=== PATIENT | female | born 2000 | race African-American/Black ===

== ENCOUNTER 2024-04-01 13:46 | Emergency (ER) | payer OTHER ==
[~2024-04-01] VITALS: Ht 167.6 cm; Wt 99.8 kg
[2024-04-01 13:57] VITALS: BP 117/72; PULSE 84; RESP 22; TEMP 98.7; O2SAT 99
[2024-04-01 15:03] LABS: BASOPHILS # (AUTO) 0.1 K/uL (0.00-0.22); BASOPHILS % (AUTO) 1.2 % (0.0-2.0); EOSINOPHILS # (AUTO) 0.1 K/uL (0-0.4); EOSINOPHILS % (AUTO) 1.3 % (0.0-4.0); HEMATOCRIT 35.9 % (36-48); HEMOGLOBIN 12.1 g/dL (12.0-16.0); LYMPHOCYTES # (AUTO) 3.3 K/uL (2.5-16.5); LYMPHOCYTES % (AUTO) 41.2 % (20.5-51.1); MEAN CORPUSCULAR HEMOGLOBIN 29 pg (27-31); MEAN CORPUSCULAR HGB CONC 34 g/dL (33-37); MEAN CORPUSCULAR VOLUME 85.1 fL (80-94); MONOCYTES # (AUTO) 0.8 K/uL (0.8-1.0); MONOCYTES % (AUTO) 10.6 % (1.7-9.3); NEUTROPHILS # (AUTO) 3.6 K/uL (1.8-7.7); NEUTROPHILS % (AUTO) 45.7 % (42.2-75.2); PLATELET COUNT (AUTO) 270 K/uL (140-450); RED BLOOD CELL COUNT(AUTO) 4.21 MIL/uL (4.20-5.40); RED CELL DISTRIBUTION WIDTH 13.7 % (11.6-13.7); WHITE BLOOD COUNT (AUTO) 7.9 K/uL (4.8-10.8)
[2024-04-01 15:13] LABS: CALCIUM 8.9 mg/dL (8.5-10.1); CREATININE 0.9 mg/dL (0.6-1.3)
[2024-04-01] MEDS: POTASSIUM CHLORIDE 10 MEQ TABER PO ONE (15:42)
[2024-04-01 16:11] LABS: BILIRUBIN,URINE 2+ (NEGATIVE); BLOOD, URINE 3+ (NEGATIVE); LEUKOCYTE ESTERASE ,URINE 1+ (NEGATIVE); NITRITE, URINE POSITIVE (NEGATIVE); PH,URINE 6.5 (5.0-9.0); PROTEIN,URINE 3+ (NEGATIVE); UGLUCOSE NEGATIVE (NEGATIVE)
[2024-04-01 16:15] LABS: APPEARANCE,URINE SLIGHTLY BLOODY (CLEAR); COLOR,URINE SLIGHT BLOODY (YELLOW)
[2024-04-01 16:18] LABS: ICTOTEST NEGATIVE (NEGATIVE)
[2024-04-01 16:19] LABS: BACTERIA,URINE 3+ /HPF (None Seen); MUCUS,URINE 2+ /LPF (None Seen); RBC,URINE TOO NUMEROUS TO COUN /HPF (0-5); WBC,URINE 60-80 /HPF (0-5)
[2024-04-01 16:20] VITALS: BP 111/71; PULSE 81; RESP 17; TEMP 98.5
[2024-04-01 16:28] VITALS: O2SAT 99
[2024-04-01] MEDS ORDERED: CEPH-588 PO (16:31)
== END 2024-04-01 16:53 | disposition home or self-care (01) ==
LOC: MED 13:46
DX: O23.40 Unspecified infection of urinary tract in pregnancy, unspecified trimester (principal); N39.0 Urinary tract infection, site not specified; Z3A.00 Weeks of gestation of pregnancy not specified; Z90.49 Acquired absence of other specified parts of digestive tract; Z79.899 Other long term (current) drug therapy
CPT/HCPCS: 36415; 76856; 80048; 81001; 81025; 84702; 85025; 86886; 86900; 86901; 87086; 87186; 99284

== ENCOUNTER 2024-04-03 07:24 | Emergency (ER) | payer OTHER ==
[~2024-04-03] VITALS: Ht 167.6 cm; Wt 76.2 kg
[~2024-04-03 07:24] MED LIST: CEPH-588 PO
[2024-04-03 07:39] VITALS: BP 135/73; PULSE 56; RESP 14; TEMP 98.2; O2SAT 98
[2024-04-03 08:23] LABS: APPEARANCE,URINE CLOUDY (CLEAR); BILIRUBIN,URINE NEGATIVE (NEGATIVE); BLOOD, URINE 3+ (NEGATIVE); COLOR,URINE BLOODY (YELLOW); LEUKOCYTE ESTERASE ,URINE 2+ (NEGATIVE); NITRITE, URINE POSITIVE (NEGATIVE); PH,URINE 6.5 (5.0-9.0); PROTEIN,URINE 3+ (NEGATIVE); UGLUCOSE NEGATIVE (NEGATIVE)
[2024-04-03 08:23] LABS: BASOPHILS # (AUTO) 0.1 K/uL (0.00-0.22); BASOPHILS % (AUTO) 0.8 % (0.0-2.0); EOSINOPHILS # (AUTO) 0.1 K/uL (0-0.4); EOSINOPHILS % (AUTO) 1.6 % (0.0-4.0); HEMATOCRIT 34.3 % (36-48); HEMOGLOBIN 11.6 g/dL (12.0-16.0); LYMPHOCYTES # (AUTO) 2.9 K/uL (2.5-16.5); LYMPHOCYTES % (AUTO) 40.8 % (20.5-51.1); MEAN CORPUSCULAR HEMOGLOBIN 29 pg (27-31); MEAN CORPUSCULAR HGB CONC 34 g/dL (33-37); MEAN CORPUSCULAR VOLUME 85.3 fL (80-94); MONOCYTES # (AUTO) 0.6 K/uL (0.8-1.0); MONOCYTES % (AUTO) 8.6 % (1.7-9.3); NEUTROPHILS # (AUTO) 3.4 K/uL (1.8-7.7); NEUTROPHILS % (AUTO) 48.2 % (42.2-75.2); PLATELET COUNT (AUTO) 249 K/uL (140-450); RED BLOOD CELL COUNT(AUTO) 4.01 MIL/uL (4.20-5.40); RED CELL DISTRIBUTION WIDTH 13.8 % (11.6-13.7); WHITE BLOOD COUNT (AUTO) 7.1 K/uL (4.8-10.8)
[2024-04-03 08:34] LABS: BACTERIA,URINE 10-30 (MOD) /HPF (None Seen); RBC,URINE TOO NUMEROUS TO COUN /HPF (0-5); SQUAMOUS EPITHELIAL CELL,UR 0-3 (FEW) /LPF (0-3 (FEW))
[2024-04-03 09:08] VITALS: BP 116/60; PULSE 61; RESP 14; TEMP 98; O2SAT 98
== END 2024-04-03 09:16 | disposition home or self-care (01) ==
LOC: MED 07:24
DX: O03.9 Complete or unspecified spontaneous abortion without complication (principal); O23.41 Unspecified infection of urinary tract in pregnancy, first trimester; O99.321 Drug use complicating pregnancy, first trimester; F15.90 Other stimulant use, unspecified, uncomplicated; Z3A.01 Less than 8 weeks gestation of pregnancy; Z90.49 Acquired absence of other specified parts of digestive tract; Z79.899 Other long term (current) drug therapy
CPT/HCPCS: 36415; 81001; 84702; 85025; 87086; 99283

== ENCOUNTER 2024-04-22 09:14 | Emergency (ER) | payer OTHER ==
[~2024-04-22] VITALS: Ht 167.6 cm; Wt 99.8 kg
[2024-04-22 09:31] VITALS: BP 133/72; PULSE 61; RESP 16; TEMP 97.2; O2SAT 99
[2024-04-22 10:59] LABS: BILIRUBIN,URINE 1+ (NEGATIVE); BLOOD, URINE NEGATIVE (NEGATIVE); LEUKOCYTE ESTERASE ,URINE 1+ (NEGATIVE); NITRITE, URINE NEGATIVE (NEGATIVE); PROTEIN,URINE TRACE (NEGATIVE); UGLUCOSE NEGATIVE (NEGATIVE); UROBILINOGEN,URINE 0.2 EU/dL (0.2 - 1)
[2024-04-22 11:03] LABS: COLOR,URINE YELLOW (YELLOW)
[2024-04-22 11:32] LABS: ICTOTEST NEGATIVE (NEGATIVE)
[2024-04-22 11:38] LABS: BACTERIA,URINE FEW /HPF (None Seen); RBC,URINE 0-5 /HPF (0-5); SQUAMOUS EPITHELIAL CELL,UR 20-50 /LPF (0-3 (FEW)); YEAST,URINE Few /HPF (None Seen)
[2024-04-22 11:39] LABS: APPEARANCE,URINE HAZY (CLEAR)
[2024-04-22] MEDS ORDERED: FLUC150T64 PO (12:10)
[2024-04-22] MEDS ORDERED: CIPR500T4 PO (12:10)
[2024-04-22 12:14] VITALS: BP 130/70; PULSE 70; RESP 16; TEMP 36.22512; O2SAT 99
== END 2024-04-22 12:14 | disposition home or self-care (01) ==
LOC: MED 09:14
DX: B37.31 Acute candidiasis of vulva and vagina (principal); N39.0 Urinary tract infection, site not specified; F12.90 Cannabis use, unspecified, uncomplicated; Z90.49 Acquired absence of other specified parts of digestive tract; Z79.899 Other long term (current) drug therapy
CPT/HCPCS: 81001; 81025; 87070; 87086; 87210; 99284